=== PATIENT | female | born 1965 | race Caucasian/White ===

== ENCOUNTER → 2021-02-02 | Outpatient (CLI) | payer SELFPAY | PROVIDERS: Referring Provider Internal Medicine; Visit Provider Internal Medicine | DX: Z23 Encounter for immunization (principal) | CPT/HCPCS: 90471; 90686 ==

== ENCOUNTER → 2021-03-17 08:46 | Outpatient (CLI) | payer OTHER, SELFPAY ==
[2021-03-17] MEDS: COVID-19 VACC #3, MRNA(MOD) 50 MCG/0.25 ML VIAL IM (08:52)
== END ==
PROVIDERS: Visit Provider Internal Medicine
DX: Z23 Encounter for immunization (principal)
CPT/HCPCS: 0013A; 91301

== ENCOUNTER → 2022-01-30 11:40 | Outpatient (CLI) | payer OTHER, SELFPAY | PROVIDERS: Referring Provider Internal Medicine; Visit Provider Internal Medicine | DX: Z23 Encounter for immunization (principal) | CPT/HCPCS: 90471; 90686 ==

== ENCOUNTER → 2023-02-10 15:43 | Outpatient (CLI) | payer OTHER, SELFPAY | PROVIDERS: Referring Provider Family Medicine; Visit Provider Family Medicine | DX: Z23 Encounter for immunization (principal) | CPT/HCPCS: 90471; 90686 ==

== ENCOUNTER 2023-04-25 07:31 | Day surgery (SDC) | payer OTHER, SELFPAY ==
[2023-04-25 07:38] VITALS: BP 148/85; PULSE 85; RESP 16; TEMP 36.5; O2SAT 99; BMI 57.3
--- NOTE | 2023-04-25 07:52 | P.HP_ITS ---
History of Present Illness History of Present Illness Date Patient Seen: 04/25/23 Time Patient Seen: 07:52 Chief complaint: Screening Colonoscopy Narrative: Gabino is a 57-year-old woman who is here for a screening colonoscopy. She has never had 1 before. She has no known family history of colon cancer. [facility] Social History Smoking Status: Never smoker Meds Home Medications and Allergies Home Medications Medication Instructions Recorded Confirmed Type fluconazole 150 mg tablet 150 mg PO Q3D 2 doses #2 tabs 03/22/21 Rx (Diflucan) peg 3350-electrolytes 236 240 ml PO Q10M #4,000 mL 02/25/23 Rx gram-22.74 gram-6.74 gram-5.86 gram solution (Golytely) Allergies Allergy/AdvReac Type Severity Reaction Status Date / Time Sulfa (Sulfonamide Allergy Severe Anaphylaxis Verified 03/22/21 07:50 Antibiotics) cefaclor [From Ceclor] Allergy Intermediate Hives Verified 03/22/21 07:50 Exam Const General: healthy appearing Assessment & Plan Assessment and plan (1) Colon cancer screening: Status: Acute Plan We reviewed the risks and benefits of colonoscopy for colon cancer screening and she would like to proceed.
[2023-04-25] MEDS: LACTATED RINGERS 1,000 ML 150 ML IV (08:06)
--- NOTE | 2023-04-25 09:24 | PM.OP.COLON ---
Operative Date/Time/Diagnoses Date of procedure: 04/25/23 Time of procedure: 09:24 Pre-op diagnosis: Colon cancer screening Post-op diagnosis: same Procedure & Clinicians Study performed: Colonoscopy Same procedure as scheduled: Yes Surgeon: Brandon Eubanks Procedure Notes Procedure in detail: Surgeon: Brandon Eubanks MD Anesthesia: Khari Procedure: The patient was brought to the endoscopy suite, placed in left lateral decubitus position. The patient was connected to monitoring devices. A time-out was performed. Sedation was administered. Once the patient was adequately sedated, a digital rectal exam was performed and was normal. The scope was then inserted and advanced to the cecum where the appendiceal orifice was identified and photographed. The prep was inadequate for full evaluation of the colon. The prep was suctioned and irrigated as much as possible but there were too many solid particles to clear. The scope was then slowly withdrawn over greater than 5 minutes. There was a large lipoma in the transverse colon. No polyps were seen in the visible segments of colon. The scope was retroflexed in the rectum. Internal hemorrhoids were noted. The scope was straightened and removed. The patient was awakened and brought to recovery. Scope withdrawal time: 5 minutes Sedation time: 14 minutes EBL: 0 Findings: Inadequate prep, large lipoma in the transverse colon, internal hemorrhoids Post-procedure Disposition: PACU
[2023-04-25 09:30] VITALS: BP 115/72; PULSE 78; RESP 15; TEMP 36.3; O2SAT 99
[2023-04-25 09:35] VITALS: BP 123/80; PULSE 68; RESP 12; O2SAT 100
[2023-04-25 09:40] VITALS: BP 132/80; PULSE 70; RESP 13; O2SAT 100
[2023-04-25 09:55] VITALS: BP 131/78; PULSE 69; RESP 12; TEMP 36.9; O2SAT 100
== END 2023-04-25 09:55 | disposition home or self-care (01) ==
PROVIDERS: PCP Family Medicine; Referring Provider Surgery; Visit Provider Surgery
PROC: 0DJD8ZZ Inspection of Lower Intestinal Tract, Via Natural or Artificial Opening Endoscopic (ICD-10-PCS; CPT 45378; principal; 2023-04-25 08:30)
DX: Z12.11 Encounter for screening for malignant neoplasm of colon (principal); K64.8 Other hemorrhoids; D17.5 Benign lipomatous neoplasm of intra-abdominal organs
CPT/HCPCS: 45378

== ENCOUNTER → 2023-09-06 07:09 | Outpatient (CLI) | payer OTHER, SELFPAY ==
[2023-09-06 08:10] LABS: Add Manual Diff / Slide Review NO; Basophils Absolute Auto 0 /uL (0-100); Basophils Percent Auto 0.7 % (0-2); Eosinophils Absolute Auto 100 /uL (0-450); Eosinophils Percent Auto 1.8 % (2-4); Hematocrit 37.4 % (36-46); Hemoglobin 12.9 g/dL (12.0-16.0); Lymphocytes Absolute Auto 3400 /uL (1100-4500); Lymphocytes Percent Auto 57.4 % (25-40); Mean Corpuscular HGB Conc 34.4 % (30-36); Mean Corpuscular Hemoglobin 30.5 PG (26-34); Mean Corpuscular Volume 88.5 fL (80-100); Monocytes Absolute Auto 500 /uL (0-900); Monocytes Percent Auto 8.4 % (3-14); Neutrophils Absolute Auto 1900 /uL (1500-7000); Neutrophils Percent Auto 31.7 % (50-75); Platelet Count 317 X10^3/uL (150-400); Red Blood Cell Count 4.22 X10^6/uL (4.0-5.2); Red Cell Distribution Width 13.2 % (11.6-14.8); White Blood Cell Count 5.9 X10^3/uL (4.5-11.0)
[2023-09-06 08:49] LABS: Alanine Aminotransferase 23 IU/L (<35); Albumin 4.7 g/dL (3.5-5.0); Albumin Globulin Ratio 1.7 (1.0-2.8); Alkaline Phosphatase 46 U/L (38-126); Aspartate Aminotransferase 23 IU/L (14-36); BUN Creatinine Ratio 21.1 (6-22); Bilirubin Total 0.6 mg/dL (0.2-1.3); Blood Urea Nitrogen 15 mg/dL (7-17); Calcium 9.9 mg/dL (8.4-10.2); Carbon Dioxide 27 mmol/L (22-32); Chloride 106 mmol/L (98-107); Estimated Glomerular Filt Rate > 60 mL/min (>60); Globulin 2.8 g/dL (1.7-4.1); Glucose 93 mg/dL (70-100); HEMOLYSIS < 15 (0-50); Sodium 140 mmol/L (137-145); Total Protein 7.5 g/dL (6.3-8.2)
[2023-09-06 08:58] LABS: Potassium 5.4 mmol/L (3.4-5.1)
== END ==
PROVIDERS: Referring Provider Urology; Visit Provider Urology
DX: Z01.818 Encounter for other preprocedural examination (principal)
CPT/HCPCS: 36415; 80053; 85025; 87086

== ENCOUNTER → 2023-12-09 08:00 | Outpatient (CLI) | payer OTHER, SELFPAY ==
--- NOTE | 2023-12-09 08:00 | DI.US.S_ITS ---
PROCEDURE: US THYROID INDICATIONS: Thyromegaly and thyroid nodule hx TECHNIQUE: Real-time scanning was performed of the thyroid gland, with image documentation. COMPARISON: None. FINDINGS: Thyroid: Right lobe measures 4.7 x 1.9 x 1.8 cm. Left lobe measures 5.1 x 1.8 x 1.3 cm. Isthmus is 0.4 cm thick. Echotexture is homogeneous. Left inferior subcentimeter cystic nodules. IMPRESSION: Left inferior thyroid lobe subcentimeter cystic nodules. No follow-up is necessary. ACR TI-RADS definitions and recommendations: TI-RADS 1 (benign): 0 points. FNA not needed. TI-RADS 2 (not suspicious): 2 points. FNA not needed. TI-RADS 3 (mildly suspicious): 3 points. * FNA if 2.5 cm or larger, follow up if 1.5 cm or larger (at 1, 3, and 5 years). TI-RADS 4 (moderately suspicious): 4-6 points. * FNA if 1.5 cm or larger, follow up if 1 cm or larger (at 1, 2, 3, and 5 years). TI-RADS 5 (highly suspicious): 7 points or more. * FNA if 1 cm or larger, follow up if 0.5 cm or larger (every year for 5 years). Dictated by: Sudhir Vizcarra M.D. on 12/09/2023 at 14:12 Approved by: Sudhir Vizcarra M.D. on 12/09/2023 at 14:14
== END ==
LOC: US 08:00
PROVIDERS: PCP Family Medicine; Referring Provider Family Medicine; Visit Provider Family Medicine
DX: E01.0 Iodine-deficiency related diffuse (endemic) goiter (principal)
CPT/HCPCS: 76536

== ENCOUNTER → 2023-12-16 08:53 | Outpatient (CLI) | payer OTHER, SELFPAY ==
--- NOTE | 2023-12-16 | DI.MG.S_ITS ---
BILATERAL DIGITAL SCREENING MAMMOGRAM 3D/2D WITH CAD WITH AUGMENTATION: 12/16/2023 Comparison is made to exams dated: 09/28/2022 mammogram and 12/15/2019 mammogram - outside location. Both breasts are heterogeneously dense, which may obscure small masses (category c / 51-75% glandular tissue). Current study was also evaluated with a Computer Aided Detection (CAD) system. Bilateral breast implants are present. No significant masses, calcifications, or other findings are seen in either breast. There has been no significant interval change. IMPRESSION: BENIGN There is no mammographic evidence of malignancy. A 1 year screening mammogram is recommended. Consider additional supplemental MRI screening. Based on Tyrer-Cuzick model (a risk assessment model), the patient's lifetime risk is 27.6% and her 10 year risk is 9.6%. If a patient has an elevated risk, a more comprehensive evaluation should be considered and/or a referral to a genetic counselor. The [employer], [employer], and NCCN Guidelines advise the consideration of Breast MRI as an adjunct to screening mammography in patients whose Lifetime risk to develop breast cancer is 20% or higher. This exam was interpreted at Station ID: [id number]. NOTE: For mammograms, a report in lay terms will be sent to the patient. Approximately 15% of breast malignancies will not be visualized mammographically. In the management of a palpable breast mass, a negative mammogram must not discourage biopsy of a clinically suspicious lesion. Electronically Signed By: Tommy Coyle M.D. lc/:12/16/2023 10:13:31 letter sent: Normal Exam ACR BI-RADS Category 2: Benign Finding(s) 3342F
== END ==
LOC: MAMMO 08:54
PROVIDERS: PCP Family Medicine; Referring Provider Family Medicine; Visit Provider Family Medicine
DX: Z12.31 Encounter for screening mammogram for malignant neoplasm of breast (principal); R92.333 Mammographic heterogeneous density, bilateral breasts
CPT/HCPCS: 77063; 77067

== ENCOUNTER → 2024-01-14 07:22 | Outpatient (CLI) | payer OTHER, SELFPAY ==
[2024-01-14 08:14] LABS: Hemoglobin A1C% w Est Avg Glu 5.2 % (4.0-6.0)
[2024-01-14 08:18] LABS: Cholesterol 295 mg/dL (140-199); HDL Cholesterol 44 mg/dL (40-60); LDL Cholesterol Calculated 214 mg/dL (<100); Triglycerides 186 mg/dL (35-150)
[2024-01-14 08:21] LABS: High Sensitivity CRP - Cardiac 1.9 mg/L (1.0-3.0)
[2024-01-14 08:52] LABS: Vitamin D 25 Hydroxy (D3) 47.7 ng/mL (30.0-100.0)
[2024-01-14 09:06] LABS: TSH w/ Reflex to FT4 1.79 uIU/mL (0.47-4.68)
[2024-01-15 15:10] LABS: QuantiFERON Mitogen Value >10.00 IU/mL (.); QuantiFERON Nil Value 0.18 IU/mL (.); QuantiFERON TB Gold Plus Negative (Negative); QuantiFERON TB1 Ag Value 0.32 IU/mL (.); QuantiFERON TB2 Ag Value 0.17 IU/mL (.)
== END ==
PROVIDERS: Family Medicine; PCP Family Medicine; Referring Provider Family Medicine; Visit Provider Family Medicine
DX: Z00.00 Encounter for general adult medical examination without abnormal findings (principal); E78.00 Pure hypercholesterolemia, unspecified; R73.01 Impaired fasting glucose; Z11.1 Encounter for screening for respiratory tuberculosis; E04.1 Nontoxic single thyroid nodule; E01.0 Iodine-deficiency related diffuse (endemic) goiter; Z02.1 Encounter for pre-employment examination
CPT/HCPCS: 36415; 80061; 82306; 83036; 84443; 86140; 86480

== ENCOUNTER → 2024-02-09 17:37 | Outpatient (CLI) | payer OTHER, SELFPAY | PROVIDERS: PCP Family Medicine; Referring Provider Internal Medicine; Visit Provider Internal Medicine | DX: Z23 Encounter for immunization (principal) | CPT/HCPCS: 90471; 90656 ==

== ENCOUNTER → 2024-06-03 07:09 | Outpatient (CLI) | payer OTHER, SELFPAY ==
--- NOTE | 2024-06-03 07:10 | DI.MRI.S_ITS ---
PROCEDURE: MR CERVICAL SPINE WO CON INDICATIONS: Hx of fusion C spine; Sxs involving R arm face TECHNIQUE: Noncontrast sagittal T1 spin echo and T2 fast spin echo, sagittal STIR, foraminal oblique sagittal T2 fast spin echo, and axial gradient echo or T2 fast spin echo through the cervical spine. COMPARISON: [facility], CR, XR CERVICAL SPINE 4V OR 5V, 06/03/2024, 7:17. FINDINGS: Image quality: Excellent. Alignment and Curvature: Anterior fusion C4-5 without osseous fusion at C6-7. Trace retrolisthesis C3 on C4. Bone Marrow: Marrow demonstrates normal overall signal. Spinal Cord: Visualized spinal cord has normal size and signal. No cerebellar tonsillar herniation. Paraspinous Soft Tissues: No paravertebral masses. Prevertebral soft tissues are normal in thickness. C2-C3: No disc bulge, spinal stenosis or foraminal narrowing. C3-C4: Mild disc bulge with mild spinal stenosis. Moderate to severe bilateral foraminal narrowing with uncovertebral hypertrophy. C4-C5: Postsurgical changes. No spinal stenosis. Mild left minimal right foraminal narrowing with uncovertebral hypertrophy. C5-C6: No disc bulge, spinal stenosis or foraminal narrowing. C6-C7: Osseous fusion without spinal stenosis. Minimal left foraminal narrowing with uncovertebral hypertrophy. C7-T1: Disc bulge mild spinal stenosis. [id number] bilateral foraminal narrowing, left greater than right. IMPRESSION: Postsurgical and osseous fusion. Multilevel foraminal narrowing most prominent L3-4 secondary to uncovertebral arthropathy. Dictated by: Miri Madison M.D. on 06/03/2024 at 15:02 Approved by: Miri Madison M.D. on 06/03/2024 at 15:09
--- NOTE | 2024-06-03 07:10 | DI.RAD.S_ITS ---
PROCEDURE: XR CERVICAL SPINE 4V OR 5V INDICATIONS: Hx of fusion C4-C6; Sxs involving R arm R side of face TECHNIQUE: 5 views of the cervical spine acquired. COMPARISON: None. FINDINGS: Cervical spine curvature and alignment: Normal. Bones: There are no osseous abnormalities. Disc spaces: Solid anterior C4-5 fusion provided by anterior plate and screws appreciated. There is also solid C5-6 fusion which either congenital or surgical. Marked degenerative facet disease C3-4 through C6-7. Mild C3-4 and C6-7 degenerative disc disease noted Intervertebral foramen: Moderate narrowing of the left C3-4 and left C4-5 IV foramen appreciated due to degenerative spurs. Soft tissues: No soft tissue swelling, calcification or mass. IMPRESSION: Postsurgical changes. Of degeneration Dictated by: Brian Willett M.D. on 06/03/2024 at 11:22 Approved by: Brian Willett M.D. on 06/03/2024 at 11:24
--- NOTE | 2024-08-16 07:45 | EKG_ITS ---
[address] [id number] [address], [place] [address] Test Date: 2024-08-16 Pat Name: Roopa Geronimo Department: Room: Gender: Female Rn Advanced: : 1965 Requested By: Order Number: [id number] Reading MD: Brian Calle MD Measurements Intervals [place] Rate: 72 P: 52 MS: 180 QRS: 51 QRSD: 96 T: 43 QT: 390 QTc: 427 Interpretive Statements Normal sinus rhythm Electronically Signed On 08-16-2024 13:31:15 PDT by Brian Calle MD
== END ==
PROVIDERS: PCP Family Medicine; Referring Provider Physician Assistant; Visit Provider Physician Assistant
DX: M47.22 Other spondylosis with radiculopathy, cervical region (principal); M50.11 Cervical disc disorder with radiculopathy, high cervical region; M48.02 Spinal stenosis, cervical region; Z98.1 Arthrodesis status
CPT/HCPCS: 72050; 72141